=== PATIENT | male | born 1965 | race Caucasian/White ===

== ENCOUNTER 2023-04-18 09:41 | Emergency (ER) | payer BC ==
[~2023-04-18] VITALS: Ht 180.3 cm; Wt 90.3 kg
[2023-04-18 10:21] LABS: BASO % 0.4 % (0.0-1.0); EOS # 0.1 10*3/uL (0.0-0.4); EOS % 1.1 % (1.0-4.0); HEMATOCRIT 45.3 % (42.0-52.0); LYMPH # 1.5 10*3/uL (1.3-4.4); LYMPH % 20.1 % (27.0-41.0); MEAN CELL VOLUME 86.8 fl (80.0-94.0); MEAN CORPUSCULAR HGB 30.1 pg (27.0-31.0); MEAN CORPUSCULAR HGB CONC 34.7 g/dl (33.0-37.0); MEAN PLATELET VOLUME 8.5 fl (9.6-12.3); MONO # 0.6 10*3/uL (0.1-1.0); MONO % 7.9 % (3.0-9.0); NEUT # 5.3 10*3/uL (2.3-7.9); NEUT % 70.2 % (47.0-73.0); PLATELET COUNT AUTOMATED 317 10*3/uL (130-400); RED BLOOD COUNT 5.22 10*6/uL (4.50-5.90); RED CELL DISTRI WIDTH 13.3 % (0-14.5); WHITE BLOOD COUNT 7.6 10*3/uL (4.8-10.8)
[2023-04-18 10:45] LABS: ALKALINE PHOSPHATASE 85 U/L (46-116); BUN 8 mg/dl (9-23); CHLORIDE 107 mmol/L (98-107); LIPASE 39 U/L (12-53); POTASSIUM 3.8 mmol/L (3.4-5.1); SGPT/ALT 11 U/L (5-49); TOTAL PROTEIN 7.2 gm/dL (6.0-8.0)
[2023-04-18] MEDS ORDERED: CARAFATE1 G1 PO ×2 (11:18→11:19)
[2023-04-18] MEDS ORDERED: PROTONIX40 MG PO ×2 (11:18→11:19)
[2023-04-18] MEDS ORDERED: PEPCID20 MG PO ×2 (11:18→11:19)
== END 2023-04-18 11:34 | disposition home or self-care (01) ==
LOC: ED 09:41
PROVIDERS: Emergency Medicine
DX: R10.13 Epigastric pain (principal); K29.70 Gastritis, unspecified, without bleeding

== ENCOUNTER → 2023-04-29 | Outpatient (CLI) | payer BC ==
[~2023-04-29] MED LIST: CARAFATE1 G1 PO; PEPCID20 MG PO; PROTONIX40 MG PO
== END | disposition home or self-care (01) ==
LOC: RAD 00:56
PROVIDERS: ATTEND Family Medicine
DX: R13.10 Dysphagia, unspecified (principal); K44.9 Diaphragmatic hernia without obstruction or gangrene

== ENCOUNTER 2024-02-22 12:29 | Inpatient (IN) | payer BC ==
[~2024-02-22] VITALS: Ht 180.3 cm; Wt 60.8 kg
[2024-02-22 12:45] VITALS: BP 108/68
[2024-02-22 13:00] LABS: EOS % 1.1 % (1.0-4.0); HEMATOCRIT 32.1 % (42.0-52.0); LYMPH # 0.2 10*3/uL (1.3-4.4); LYMPH % 5.1 % (27.0-41.0); MEAN CORPUSCULAR HGB 29.8 pg (27.0-31.0); MEAN CORPUSCULAR HGB CONC 32.4 g/dl (33.0-37.0); MEAN PLATELET VOLUME 8.4 fl (9.6-12.3); MONO # 0.3 10*3/uL (0.1-1.0); MONO % 9.2 % (3.0-9.0); NEUT # 3.1 10*3/uL (2.3-7.9); NEUT % 83.8 % (47.0-73.0); PLATELET COUNT AUTOMATED 305 10*3/uL (130-400); RED BLOOD COUNT 3.49 10*6/uL (4.50-5.90); RED CELL DISTRI WIDTH 15.8 % (0-14.5); WHITE BLOOD COUNT 3.7 10*3/uL (4.8-10.8)
[2024-02-22 13:10] LABS: ACT PARTIAL THROMBO TIME 29.6 SECONDS (20.0-32.1)
[2024-02-22 13:32] LABS: ALKALINE PHOSPHATASE 124 U/L (46-116); BUN 5 mg/dl (9-23); CHLORIDE 102 mmol/L (98-107); SGPT/ALT 10 U/L (5-49); TOTAL PROTEIN 5.6 gm/dL (6.0-8.0)
[2024-02-22 13:35] LABS: POTASSIUM 2.1 mmol/L (3.4-5.1)
[2024-02-22] MEDS ORDERED: POTASSIUM CHLORIDE 20 MEQ TAB PO ONE ×3 (13:50→20:25)
[2024-02-22] MEDS ORDERED: MAGNESIUM OXIDE 400 MG TAB PO ONE (13:50)
[2024-02-22] MEDS ORDERED: POTASSIUM CHLORIDE IN WATER 100 ML IV SCH (14:00)
[2024-02-22 19:46] LABS: BUN 5 mg/dl (9-23); CHLORIDE 103 mmol/L (98-107); POTASSIUM 2.7 mmol/L (3.4-5.1)
[2024-02-22 20:03] LABS: CHLORIDE 103 mmol/L (98-107)
[2024-02-22 20:06] LABS: BUN < 5 mg/dl (9-23)
== END 2024-02-22 22:23 | disposition left against medical advice (07) | DRG 641 ==
LOC: ED 12:29 → EDHOLD 13:52 → 4E 21:04 → EDHOLD 21:04 → 4E 21:04 → EDHOLD 22:23
PROVIDERS: Emergency Medicine; ADMIT Internal Medicine; ATTEND Internal Medicine
DX: E87.6 Hypokalemia (principal); C16.9 Malignant neoplasm of stomach, unspecified; Z92.21 Personal history of antineoplastic chemotherapy; Z92.3 Personal history of irradiation; Z53.29 Procedure and treatment not carried out because of patient's decision for other reasons

== ENCOUNTER 2024-02-29 14:41 | Emergency (ER) | payer BC ==
[~2024-02-29] VITALS: Ht 180.3 cm; Wt 60.8 kg
[2024-02-29 15:33] LABS: BASO % 0.2 % (0.0-1.0); EOS % 0.8 % (1.0-4.0); HEMATOCRIT 31.1 % (42.0-52.0); LYMPH # 0.4 10*3/uL (1.3-4.4); LYMPH % 7.5 % (27.0-41.0); MEAN CELL VOLUME 91.5 fl (80.0-94.0); MEAN CORPUSCULAR HGB 29.7 pg (27.0-31.0); MEAN CORPUSCULAR HGB CONC 32.5 g/dl (33.0-37.0); MEAN PLATELET VOLUME 8.7 fl (9.6-12.3); MONO # 0.5 10*3/uL (0.1-1.0); MONO % 9.1 % (3.0-9.0); NEUT # 4.1 10*3/uL (2.3-7.9); NEUT % 80.6 % (47.0-73.0); PLATELET COUNT AUTOMATED 278 10*3/uL (130-400); RED CELL DISTRI WIDTH 15.9 % (0-14.5); WHITE BLOOD COUNT 5.1 10*3/uL (4.8-10.8)
[2024-02-29 16:05] LABS: BUN 9 mg/dl (9-23); CHLORIDE 106 mmol/L (98-107); POTASSIUM 2.5 mmol/L (3.4-5.1)
[2024-02-29] MEDS ORDERED: POTASSIUM CHLORIDE 20 MEQ TAB PO ONE (16:35)
[2024-02-29] MEDS ORDERED: POTASSIUM CHLORIDE IN WATER 100 ML IV SCH (17:00)
== END 2024-02-29 22:50 | disposition left against medical advice (07) ==
LOC: ED 14:41
PROVIDERS: Internal Medicine
DX: E87.6 Hypokalemia (principal); Z53.29 Procedure and treatment not carried out because of patient's decision for other reasons